=== PATIENT | male | born 1955 | race Caucasian/White ===

== ENCOUNTER 2016-09-13 12:58 | Emergency (ER) | payer OTHER ==
[2016-09-13 14:32] VITALS: RESP 15
[2016-09-13] MEDS ORDERED: predniSONE 50 MG TAB PO STA (14:49)
[2016-09-13] MEDS ORDERED: IPRATROPIUM-ALBUTEROL 3 ML NEB INHALATION STA (14:49)
--- NOTE | 2016-09-13 14:53 | ED ---
General Adult HPI - General Chief complaint: Shortness of Breath Stated complaint: SOB/ has COPD Time Seen by Provider: 09/13/16 14:35 Source: patient, RN notes reviewed Mode of arrival: ambulatory Limitations: no limitations - History of Present Illness Initial comments: Patient is a pleasant 60-year-old male presenting to the emergency department with complaints of difficulty in breathing. Onset of symptoms was last night. Patient has had similar symptoms multiple times previously associated with COPD. Patient states he does need to refill his albuterol. Patient also requests prednisone for a few days. No fevers. Occasional dry cough. No leg pain or leg swelling. No chest pain. - Related Data Home Medications Medication Instructions Recorded Confirmed Albuterol Inhaler [Ventolin 1 - 2 puff INHALATION Q6HR PRN 09/22/14 09/13/16 Inhaler] Albuterol Nebulized [Ventolin 2.5 mg INHALATION RT-Q4H PRN 09/13/16 09/13/16 Nebulized] Previous Rx's Medication Instructions Recorded Albuterol Inhaler [Ventolin Hfa 2 puff INHALATION Q4HR PRN #1 09/13/16 Inhaler] inhaler Albuterol Nebulized [Ventolin 2.5 mg INHALATION QID PRN #125 nebu 09/13/16 Nebulized] predniSONE 20 mg PO BID #10 tab 09/13/16 Allergies Allergy/AdvReac Type Severity Reaction Status Date / Time No Known Allergies Allergy Verified 09/13/16 14:29 Review of Systems ROS Statement: Those systems with pertinent positive or pertinent negative responses have been documented in the HPI. ROS Other: All systems not noted in ROS Statement are negative. Constitutional: Denies: fever, chills Eyes: Denies: eye pain ENT: Denies: ear pain Respiratory: Reports: dyspnea Cardiovascular: Denies: chest pain Endocrine: Denies: fatigue Gastrointestinal: Denies: abdominal pain Genitourinary: Denies: dysuria Musculoskeletal: Denies: back pain Skin: Denies: rash Neurological: Denies: weakness Past Medical History Past Medical History: COPD History of Any Multi-Drug Resistant Organisms: None Reported Past Surgical History: Back Surgery Additional Past Surgical History / Comment(s): skin graft Past Psychological History: No Psychological Hx Reported Smoking Status: Current every day smoker Past Alcohol Use History: None Reported Past Drug Use History: None Reported, Marijuana General Exam Limitations: no limitations General appearance: alert, in no apparent distress Head exam: Present: atraumatic Eye exam: Present: normal appearance, PERRL ENT exam: Present: normal oropharynx Neck exam: Present: normal inspection Respiratory exam: Present: wheezes Cardiovascular Exam: Present: regular rate, normal rhythm GI/Abdominal exam: Present: soft. Absent: tenderness Extremities exam: Present: normal inspection. Absent: pedal edema, calf tenderness Neurological exam: Present: alert Psychiatric exam: Present: normal affect, normal mood Skin exam: Absent: rash Course Vital Signs 09/13/16 09/13/16 09/13/16 13:31 14:31 14:56 Temperature 98.1 F 97.8 F Pulse Rate 87 72 72 Respiratory 20 15 Rate Blood Pressure 134/77 171/74 O2 Sat by Pulse 98 97 Oximetry 09/13/16 15:06 Temperature Pulse Rate 72 Respiratory Rate Blood Pressure O2 Sat by Pulse Oximetry - Reevaluation(s) Reevaluation #1: 09/13/16 14:51 Patient refuses chest x-ray. Patient refuses lab work and IV. Patient refuses steroid injection. Medical Decision Making - Medical Decision Making Patient reexamined and symptom-free. Lungs are clear to auscultation. Patient requests discharge. Disposition Clinical Impression: Acute exacerbation of chronic obstructive airways disease Disposition: HOME SELF-CARE Condition: Stable Instructions: COPD (Chronic Obstructive Pulmonary Disease) (ED) Additional Instructions: Please follow-up with primary care physician in the week. Return for difficulty breathing, fevers, pain, worsening symptoms or any other concerns. Prescriptions: Albuterol Inhaler [Ventolin Hfa Inhaler] 2 puff INHALATION Q4HR PRN #1 inhaler PRN Reason: Dyspnea Albuterol Nebulized [Ventolin Nebulized] 2.5 mg INHALATION QID PRN #125 nebu PRN Reason: Dyspnea predniSONE 20 mg PO BID #10 tab Referrals: None,Stated [Primary Care Provider] - 1-2 days Blair Freitas MD [STAFF PHYSICIAN] - 1-2 days Time of Disposition: 15:28
[2016-09-13 15:32] VITALS: BP 138/79; PULSE 71; TEMP 97.9
== END 2016-09-13 15:32 | disposition home or self-care (01) ==
LOC: EC 12:58
DX: J44.1 Chronic obstructive pulmonary disease with (acute) exacerbation (principal); F17.200 Nicotine dependence, unspecified, uncomplicated
CPT/HCPCS: 94640; 93005; 99284; J7512